=== PATIENT | male | born 1965 | race Caucasian/White ===

== ENCOUNTER 2016-03-26 16:48 | Emergency (ER) | payer OTHER ==
[~2016-03-26] VITALS: Ht 185.4 cm; Wt 90.9 kg
[2016-03-26 16:51] VITALS: BP 154/111; PULSE 67; RESP 18; O2SAT 96
--- NOTE | 2016-03-26 18:39 | ED.REPORT ---
HPI-General Illness Date of Service Mar 26, 2016 ED Provider: Dr. Sachin Adhikari M.D. A 50 year old male with a history of chronic back pain presents to the ED requesting Methadone. He has been unable to get his current prescription refilled for the past month due to issues finding a provider, despite many attempts, after his previous prescriber had his license revoked. He still has a portion of his previously prescribed Methadone (25mg four times a day), but has reduced his intake by half to preserve the medication. The patient has also begun using medicinal marijuana for pain, with some relief. After cutting back on his medication the patient reports rhinorrhea, diarrhea, and increased pain. segregator has been attempting to get him into a pain clinic, unclear if this is happening. Nursing Notes Stated Complaint: MEDICATION ISSUE Chief Complaint: General Complaint Nursing Notes Reviewed: Yes Allergies: Coded Allergies: Bumble Bee (Verified Allergy, Unknown, 03/26/16) Uncoded Allergies: ACROMYACIN (Allergy, Unknown, 03/26/16) General Time Seen by MD: 18:39 Chief Complaint Other (Requesting Methadone) Hx Obtained From: Patient Arrived By: Walk-in Sudden in Onset?: No Onset Occurred: More than a week ago... (1 month) Symptom Duration: Since onset Location: : Back Quality: Painful Severity: Current: Moderate Severity: Maximum: Moderate Associated with: Reports: Pain (Back), Denies: Fever Relieved by: Prescription meds Recent Healthcare: No recent doctor visit Similar Sx Previous: No Past Medical History Past Medical History Chronic back pain secondary to ruptured disc and herniated discs Past Surgical History None reported Smoking History Unknown if Ever Smoker Social History Drug Use: THC Other Social History: Lives with children Ambulatory Status Independent Review of Systems + Methadone request Full Review of Systems GI: Reports: Diarrhea Musculoskeletal: Reports: Back pain Allergy / Immune: Reports: Rhinorrhea Complete sys rev & neg: except as marked. Physical Exam Vital Signs Vital Signs Date Time Temp Pulse Resp B/P Pulse Ox O2 Delivery O2 Flow Rate FiO2 03/26/16 16:51 36.6 67 18 154/111 96 Room Air Initial VS: Reviewed Head / Eyes: Atraumatic, Normocephalic ENT: Conjunctiva normal, No scleral icterus Respiratory: No respiratory distress Neurologic: Alert, Oriented, Nonfocal Psychiatric: Mood/affect normal, Behavior normal, Normal thought content General/Constitutional: Awake, Alert Ambulatory Prefers to stand Re-Eval/Medical Decision Med Decision/Clinical Course Declined any non-opiate meds for pain or for withdrawal symptoms. Time of Eval: 18:50 Patient Status: Condition improved Re-Evaluation/Progress Note: Discussed with patient diagnosis and plan for discharge. Follow-up and return to the ER instructions given. Patient agrees with plan for care and all questions were addressed. Counseled Regarding: Diagnosis, Need for follow-up, When/why to return to ED Discharge & Departure Primary Impression: Opiate dependence Substance use status: uncomplicated Qualified Code: F11.20 - Opioid dependence, uncomplicated Additional Impression: Chronic back pain Disposition: Home Discharge Condition All VS Reviewed: Yes Condition: Stable Additional Instructions: We advised that you taper the remaining methadone you have and follow up with your primary care provider as soon as possible. Mayl use ibuprofen or naproxen as needed for pain also, continue with alternative modalities such as acupuncture and physical therapy. We are unable to prescribe opiates for chronic pain or replacement of methandone from the ED. Referrals: Derick Noel MD (PCP) Meghanibedenilson Attestation Portions of this note were transcribed by Siomara Oliva. I, Dr. Adhikari, personally performed the history, physical exam, and medical decision-making; I reviewed and confirmed the accuracy of the information in the transcribed note. Signed by: Elia Mike, 03/26/2016, 19:34 copies to: Derick Noel MD, Donald L MD Mar 26, 2016 18:39 SIOMARA OLIVA Mar 26, 2016 18:51
== END 2016-03-26 19:03 | disposition home or self-care (01) ==
LOC: SED 16:48
DX: F11.20 Opioid dependence, uncomplicated (principal); M54.9 Dorsalgia, unspecified; G89.4 Chronic pain syndrome; Z91.030 Bee allergy status; Z88.8 Allergy status to other drugs, medicaments and biological substances